=== PATIENT | female | born 1985 | race Two or more races ===

== ENCOUNTER 2024-02-20 09:04 | Emergency (ER) | payer BC, SELFPAY ==
[2024-02-20 09:06] VITALS: BMI 32.9
[2024-02-20 09:20] VITALS: BP 114/77; PULSE 75; RESP 16; TEMP 36.8; O2SAT 100; BMI 27.3
--- NOTE | 2024-02-20 09:23 | XR_ITS ---
Examination: Duplex scan of the lower extremity, unilateral right complete Date and time of exam: February 20, 2024 0949 hours INDICATIONS: Right leg swelling and pain beginning one week ago Technique: Duplex scan of the extremity veins using B-mode/grayscale imaging and Doppler spectral analysis and color flow Attention is directed to internal echogenicity, compression and augmentation involving these veins, color flow assessment, spectral analysis Findings: Major deep venous structures in the extremity demonstrate normal course and caliber. There is no evidence of deep vein thrombosis. Normal color flow and spectral analysis Impression: Negative for DVT..
--- NOTE | 2024-02-20 09:24 | EDNOTE_ITS ---
<Statement entered by Divina Vera MD - 02/24/24 09:15> As co-signing physician, I was present and available for consult prn. I concur with the plan and care as documented by the midlevel provider. ED Extremity Problem RME/HPI General Chief complaint: Extremity Problem,Nontraumatic Stated complaint: SENT BY PMD FOR LOWER EXT EDEMA Time Seen by Provider: 02/20/24 09:07 Arrival date/time: 02/20/24 09:04 38-year-old female presents emergency department complains of right lower ext remity swelling for than a year patient reports no fever nausea or vomiting no numbness or tingling Limitations: no limitations Related Data Allergies Allergy/AdvReac Type Severity Reaction Status Date / Time No Known Allergies Allergy Verified 02/20/24 09:10 Review of Systems Review of Systems Systems Reviewed: All systems reviewed, normal except as documented Constitutional Constitutional: Reports system reviewed and no additional complaints, except as documented, Denies fever(s) and Denies headache(s) Eyes Eyes: Reports system reviewed and no additional complaints, except as documented and Denies blurry vision ENT Ears, Nose, Mouth, and Throat: Reports system reviewed and no additional complaints, except as documented, Denies headache(s), Denies nasal congestion and Denies nasal discharge Cardiovascular Cardiovascular: Reports system reviewed and no additional complaints, except as documented, Denies chest pain and Denies dyspnea Respiratory Respiratory: Reports system reviewed and no additional complaints, except as documented, Denies chest congestion, Denies cough and Denies dyspnea Gastrointestinal Gastrointestinal: Reports system reviewed and no additional complaints, except as documented and Denies abdominal pain Musculoskeletal Musculoskeletal: Reports system reviewed and no additional complaints, except as documented and Reports other (Swelling right lower extremity) Integumentary/Breasts Skin/Breast: Reports system reviewed and no additional complaints, except as documented and Denies rash Neurologic Neurologic: Reports system reviewed and no additional complaints, except as documented, Reports as per HPI and Denies headache(s) Past Medical History Social History SMOKING STATUS: Never smoker ED Exam General Limitations: Present no limitations General appearance: Present alert and in no apparent distress Head Head exam: Present atraumatic Eye Eye exam: Present normal appearance, PERRL and EOMI ENT ENT exam: Present normal exam, normal oropharynx and mucous membranes moist Neck Neck exam: Present normal inspection, full ROM and trachea midline Chest Chest inspection: Present normal inspection and symmetric chest wall rise Respiratory Respiratory exam: Present normal lung sounds bilaterally Cardiovascular Cardiovascular exam: Present regular rate, normal rhythm and normal heart sounds Abdominal Exam Abdominal exam: Present soft and normal bowel sounds Extremities Exam Extremities exam: Present full ROM, tenderness, normal capillary refill and pedal edema (Right lower extremity swelling) Back Exam Back exam: Present normal inspection and full ROM Neurological Exam Neurological exam: Present alert, oriented X3 and CN II-XII intact Psychiatric Psychiatric exam: Present normal affect and normal mood Skin Skin exam: Present warm, dry, intact and normal color Course Quality Measures none Orders Category Date Time Status US venous doppler LE RT Stat Exams 02/20/24 09:23 Completed BNP [B-Type Natriuretic Peptide] Stat Lab 02/20/24 09:38 Completed CBC Stat Lab 02/20/24 09:38 Completed Comprehensive Metabolic Panel Stat Lab 02/20/24 09:38 Completed HCG,Qualitative Serum Stat Lab 02/20/24 09:38 Completed Partial Thromboplastin Time Stat Lab 02/20/24 09:38 Completed Prothrombin Time with INR Stat Lab 02/20/24 09:38 Completed Vital Signs Vital signs: Vital Signs Temperature 98.3 F 02/20/24 09:20 Pulse Rate 75 02/20/24 09:20 Respiratory Rate 16 02/20/24 09:20 Blood Pressure 114/77 02/20/24 09:20 Pulse Oximetry (%) 100 02/20/24 09:20 Oxygen Delivery Method Room Air 02/20/24 09:20 O2 saturation 100% room air within normal limits Extremity Problem MDM Narrative MDM Narrative:: 38-year-old female presents emergency department complains of right lower extremity swelling for than a year patient reports no fever nausea or vomiting no numbness or tingling On exam patient does not appear ill or toxic patient is not appear in acute distress Lab work as well as imaging obtained no acute emergent findings noted Explained to the patient she needs to follow-up with her PCP for referral to vascular specialist For emergent concerns patient instructed to return immediately Patient data External records reviewed:: [facility] previous records Clinical information provided by:: patient Social determinants that could affect healthcare access:: none Patient has the following chronic illnesses:: None How is presenting disease/condition affected by chronic disease/condition?: no chronic disease Evaluation data The following diagnostics were reviewed and interpreted by me:: lab results and radiology exam(s) Lab and/or radiology exams considered but not ordered:: Labs and radiology obtained Interpretation Summary: Reviewed by me Medications / Prescriptions Medications or Prescriptions considered but not ordered:: Given Medication administrations:: Given Consultations Consultation(s) initiated? (list below): No Diagnosis Extremity Problem Differential Diagnosis: herpes zoster, superficial thrombophlebitis, deep venous thrombosis of upper extremity and other (DVT, dependent edema) Most likely diagnosis given after review of the tests above:: Dependent edema right lower extremity Admission Indicated Admission indicated?: not indicated Admission Request Was there a request for admission?: No Disposition Plan Disposition Plan: Discharge Discharge Attestation Discharge Attestation: The patient and all family members were given an opportunity to ask questions and understood the discharge instructions. Discharge instructions specifically effects, indications for sooner follow up or return to the emergency department, and the expected course of current diagnosis. Patient condition: Stable Discharge Plan Plan Patient Disposition: HOME (Self Care) Disposition Comment: Stable Problem List Clinical Impression: Edema of right lower extremity Patient/Caregiver Discharge Instructions Education Materials: ED Lymphedema Additional Instructions: Please follow-up with your primary care doctor and or get a referral to vascular specialist for worsening symptoms or concerns return to the ER immediately Print Language: Ukrainian Stand Alone Forms: Radha Award Info., Work/School Release, Patient Portal Info Letter RUSTAM/ELLIOT Supervising Physician RUSTAM/ELLIOT Supervising Physician: Dr. vera
[2024-02-20 09:56] LABS: Basophils % (Auto) 0 % (0-2.5); Eosinophils # (Auto) 0.1 Thou/mm3 (0.0-0.5); Eosinophils % (Auto) 1 % (0-10); Hematocrit 39.8 % (36.0-46.0); Hemoglobin 13.2 g/dL (12.0-16.0); Immature Granulocytes % (Auto) 0 % (0-0); Immature Granulocytes Auto 0.02 Thou/mm3 (0.00-0.00); Lymphocytes # (Auto) 1.5 Thou/mm3 (1.0-4.8); Lymphocytes % (Auto) 25 % (10-50); Mean Corpuscular HGB Conc 33.2 g/dl (31.0-37.0); Mean Corpuscular Hemoglobin 31.4 pg (25.0-35.0); Mean Corpuscular Volume 95 fL (80-100); Monocytes # (Auto) 0.4 Thou/mm3 (0.0-0.8); Monocytes % (Auto) 6 % (0-12); Neutrophils # (Auto) 4.1 Thou/mm3 (1.8-7.7); Neutrophils % (Auto) 67 % (37-80); Nucleated Red Blood Cell % 0 /100 WBC (0); Platelet Count 284 Thou/mm3 (140-440); RDW Standard Deviation 42.5 fL (36.4-46.3); Red Blood Count 4.21 Miln/mm3 (4.00-5.20); White Blood Count 6.2 Thou/mm3 (3.6-11.0)
[2024-02-20 10:07] LABS: HCG,Qualitative Serum Negative
[2024-02-20 10:12] LABS: B-Type Natriuretic Peptide < 20 pg/mL (0-100)
[2024-02-20 10:13] LABS: Alanine Aminotransferase 23 U/L (10-49); Albumin, Serum 4.4 gm/dL (3.5-5.0); Albumin/Globulin Ratio 1.8 (1.2-2.2); Alkaline Phosphatase 87 U/L (46-116); Anion Gap 9 (7-16); Aspartate Amino Transferase 18 U/L (0-34); BUN/Creatinine Ratio 16 Ratio (12-20); Bilirubin,Total 0.6 mg/dL (0.3-1.2); Blood Urea Nitrogen 13 mg/dL (9-23); Calcium 9.1 mg/dL (8.3-10.6); Calcium (Corrected) 9.1 mg/dL (8.5-10.1); Carbon Dioxide 26.1 mMol/L (20.0-31.0); Chloride 106 mMol/L (98-107); Creatinine (Component) 0.8 mg/dL (0.6-1.3); Estimated Creatinine Clearance 89.5 mL/min (>60); Globulin 2.4 gm/dL (2.3-3.5); Glucose 93 mg/dL (74-106); Osmolality,Calculated 281 (275-295); Prothrombin Time 10.6 Seconds (9.0-12.2); Sodium 141 mMol/L (136-145); Total Protein 6.8 gm/dL (5.7-8.2); eGFR > 60 See Note
== END 2024-02-20 13:44 | disposition home or self-care (01) ==
LOC: SERX 10:54
PROVIDERS: Nurse Practitioner Primary Care; Emergency Provider Emergency Medicine; PCP Family Medicine
DX: R60.0 Localized edema (principal)
CPT/HCPCS: 36415; 80053; 83880; 84703; 85025; 85610; 85730; 93971; 99284